=== PATIENT | female | born 1935 | race Caucasian/White ===

== ENCOUNTER 2018-02-10 14:17 | Inpatient (IN) | payer MEDICARE ==
[~2018-02-10] VITALS: Ht 170.2 cm; Wt 86.4 kg
--- NOTE | ~2018-02-10 | PN ---
PATIENT:PRABHU HAINES MEDICAL RECORD: [id number] LOCATION:[facility] ADMISSION DATE: 02/10/18 PROGRESS NOTE DATE OF SERVICE: 02/19/2018 SUBJECTIVE: The patient's case was discussed with staff. She has no new complaint. OBJECTIVE: The patient is in good behavioral control with limited insight about her condition. She tolerates her medicines well. ASSESSMENT: No change in diagnoses. PLAN: Supportive and educational interventions were made. Custodial prognosis is guarded. I anticipate the patient can be transitioned to rehabilitative services soon if this level of improvement is maintained. TRANSINT:[id number] Voice Confirmation ID: [id number] DOCUMENT ID: [id number] EFRAIN XIONG MD at 1433 CC: [id number] DICTATION DATE: 02/19/18 1434 FOUNDATION DIGGER: 02/19/18 1452 ADM IN [place] [id number] [place] [id number]
--- NOTE | ~2018-02-10 | PSY ---
PATIENT NAME:PRABHU HAINES MEDICAL RECORD: [id number] : 35 LOCATION:[facility] [place]8 ADMISSION DATE: 02/10/18 ACCOUNT: [id number] PSYCHIATRIC EVALUATION DATE OF EVALUATION: 02/11/18 IDENTIFYING DATA: The patient is 82 years old and she is admitted to the hospital on a voluntary basis. CHIEF COMPLAINT: "I fall down a lot." HISTORY OF PRESENT ILLNESS: The patient's family brought her to the Emergency Room at [facility] yesterday. They reported that she has been quite confused. The patient admits she has had some confusion, but in my opinion tends to be minimizing it significantly. She says that she has no particular concerns about this, but then goes on to report a lot of depressive symptoms related to her daughter's suicide and the of her sister. She states that she does not want to hurt herself. She also says that she is having trouble focusing properly and has not been particularly hungry. PAST MEDICAL HISTORY: Significant for diabetes, hypothyroidism, and hypertension. PAST PSYCHIATRIC HISTORY: Significant for depression which has been treated on an outpatient basis. FAMILY HISTORY: Significant for mood disorders as evidenced by her daughter, who killed herself. ALLERGIES: CEPHALOSPORINS, CIPRO, AND MORPHINE. CURRENT MEDICATIONS: Include Glucophage, Synthroid, Protonix, Halfprin, Lopressor, Effexor and an assortment of vitamins. SOCIAL HISTORY: The patient is . She had 4 children, but now only has 3. 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 MENTAL STATUS EXAMINATION: The patient is awake, alert and oriented to person, place and somewhat to time and situation. Her mood is flat. Her affect is constricted. Thought processes are circumstantial. Memory, concentration, and abstraction abilities are moderately impaired, and she denies any intent to harm herself or others as well as overt psychotic symptoms. ASSETS: Supportive family members. LIABILITIES: Limited insight. DIAGNOSTIC IMPRESSION: AXIS I: Major depression, moderate severity without psychotic features. Rule out dementia. AXIS II: None. AXIS III: Diabetes, hypertension, hypothyroidism. AXIS IV: Moderate stressors. AXIS V: Global assessment of functioning is 40. PLAN: At this time, the patient is admitted to the hospital for a comprehensive medical, psychological, and social evaluation. She will be treated with both mood stabilizing and memory enhancing medications. Her long-term prognosis is guarded. TRANSINT:[id number] Voice Confirmation ID: [id number] DOCUMENT ID: [id number] EFRAIN XIONG MD at 1407 CC: [id number] DICTATION DATE: 02/11/18 1137 INDUSTRIAL SOCIOLOGIST: 02/11/18 1429 ADM IN [place] [id number] [place] [id number]
--- NOTE | ~2018-02-10 | PN ---
PATIENT:PRABHU HAINES MEDICAL RECORD: [id number] LOCATION:[facility] Van[facility]112 ADMISSION DATE: 02/10/18 PROGRESS NOTE DATE OF SERVICE: 02/20/2018 SUBJECTIVE: The patient's case was discussed with staff. She has no new complaint. OBJECTIVE: The patient denies intent to harm herself or others. She tolerates her medicines well. Eye contact is fair. ASSESSMENT: No change in diagnoses. PLAN: Supportive and educational interventions were made. Long-term prognosis is guarded. TRANSINT:[id number] Voice Confirmation ID: [id number] DOCUMENT ID: [id number] EFRAIN XIONG MD at 1348 CC: [id number] DICTATION DATE: 02/20/18 1504 FORMING ACID DUMPER: 02/20/[address] [facility] [address] [place] [address]
--- NOTE | ~2018-02-10 | DS ---
PATIENT:PRABHU HAINES :35 MEDICAL RECORD: [id number] DISCHARGE SUMMARY ADMISSION DATE: 02/10/18 DISCHARGE DATE: 02/22/18 IDENTIFYING DATA: The patient is 82 years old and she was admitted to the hospital on a voluntary basis. The patient initially had the complaint that she was falling down frequently and indeed she did have some bruising. The patient's family actually brought her to the Emergency Room at [facility]. They reported that she had been confused. The patient did not feel she had any particular concerns about that, but endorsed a lot of depressive symptoms and related it to the of her daughter and the of her sister. She stated that she did not want to hurt herself, was having trouble focusing properly and had a significant appetite loss. HOSPITAL COURSE: The patient was admitted to the hospital and fully evaluated from both a medical, psychological, and social standpoint. She was treated with both mood stabilizing and memory enhancing medications. She was found to be depressed and was given antidepressant medication and did show improvement. It was clear from the initial evaluation that the patient was significantly and seriously impaired. Testing was ordered by our neuropsychologist, Dr. Nancy Suggs, who performed an evaluation and found her to be severely impaired cognitively with an overall score of 5/30 with anything below 28 being abnormal. The results of this were a little surprising to me and I suppose that was the relative preservation of her verbal skills that would have led me to guess that she would have probably scored in the 10 or 12 range, but she is severe. This does fit with what was observed clinically with the exception of the relative preservation of her verbal skills. The patient was successfully treated with medication and subsequently was transitioned out of the hospital. DISCHARGE DIAGNOSES: AXIS I: Major depression, senile dementia of the Alzheimer's type. AXIS II: None. AXIS III: Diabetes, hypertension and hypothyroidism. AXIS IV: Moderate stressors. AXIS V: Global assessment of functioning 45. PLAN: At the time of discharge, the patient was not representing an acute risk to herself or others. She had no psychotic symptoms and no thoughts of harming herself or others. She was severely impaired cognitively and it is my opinion that she lacks the capacity to make reasonable informed consent decisions about her person or a state. I do not believe she should be left unattended and that the least restrictive environment may well be at home, but she must have 94-zvnf-d-day supervision. It is irresponsible and inappropriate for her to have anything less and it would place her safety at risk because of her condition, which unfortunately is also going to worsen. Followup will be with her primary care physician. Again, there is no evidence of dangerousness acutely and I think she will respond reasonably well to a supportive structured environment. TRANSINT:[id number] Voice Confirmation ID: [id number] DOCUMENT ID: [id number] DISCHARGE SUMMARY REPORT [id number] PRABHU HAINES PETER MD at 1037 CC: [id number] DICTATION DATE: 03/13/18 1504 COMMUNICATION EQUIPMENT MECHANIC: 03/13/18 2004 DIS IN 02/22/18 [facility] [address] [place] [address]
--- NOTE | ~2018-02-10 | PN ---
PATIENT:PRABHU HAINES MEDICAL RECORD: [id number] LOCATION:[facility] [place]112 ADMISSION DATE: 02/10/18 PROGRESS NOTE DATE OF SERVICE: 02/13/2018 SUBJECTIVE: The patient's case was discussed with staff. She has no new complaint. OBJECTIVE: The patient is in good behavioral control with limited insight about her condition. She tolerates her medicines well. ASSESSMENT: No change in diagnoses. PLAN: Supportive and educational interventions were made. I am going to start the patient on Aricept for its memory enhancing properties. TRANSINT:[id number] Voice Confirmation ID: [id number] DOCUMENT ID: [id number] EFRAIN XIONG MD at 1236 CC: [id number] DICTATION DATE: 02/13/18 1318 ICT PROJECT MANAGER: 02/13/18 1353 ADM IN [facility] [address] [place] [address]
--- NOTE | ~2018-02-10 | PN ---
PATIENT:PRABHU HAINES MEDICAL RECORD: [id number] LOCATION:[place]112 ADMISSION DATE: 02/10/18 PROGRESS NOTE DATE OF SERVICE: 02/22/2018 SUBJECTIVE: The patient's case was discussed with staff. She has no new complaint. OBJECTIVE: The patient is in good behavioral control with limited insight about her condition. She does tolerate her medicines well. ASSESSMENT: No change in diagnoses. PLAN: The patient will be transitioned out of the hospital today. She is going to go to rehab at [facility]. Follow up will be with the primary care [facility] physician. TRANSINT:[id number] Voice Confirmation ID: [id number] DOCUMENT ID: [id number] EFRAIN XIONG MD at 1434 CC: [id number] DICTATION DATE: 02/22/18 1349 SALES TRAINING MANAGER: 02/22/18 1417 DIS IN 02/22/18 [place] [id number] [place] [address]
--- NOTE | ~2018-02-10 | PN ---
PATIENT:PRABHU HAINES MEDICAL RECORD: [id number] LOCATION:[place]112 ADMISSION DATE: 02/10/18 PROGRESS NOTE DATE OF SERVICE: 02/14/2018 SUBJECTIVE: The patient's case was discussed with staff. She has no new complaint. OBJECTIVE: The patient is in good behavioral control with limited insight about her condition. She generally tolerates her medicines well. ASSESSMENT: No change in diagnoses. PLAN: The patient's current medicines have been reviewed. She is tolerating her medicines well. I will maintain these medications and anticipate that she can be transitioned out of the hospital soon. TRANSINT:[id number] Voice Confirmation ID: [id number] DOCUMENT ID: [id number] EFRAIN XIONG MD at 1332 CC: [id number] DICTATION DATE: 02/14/18 1305 LAP POLISHER: 02/14/18 1357 ADM IN [place] [id number] [place] [address]
--- NOTE | ~2018-02-10 | PN ---
PATIENT:PRABHU HAINES MEDICAL RECORD: [id number] LOCATION:[facility] [place]112 ADMISSION DATE: 02/10/18 PROGRESS NOTE DATE OF SERVICE: 02/16/2018 SUBJECTIVE: The patient's case was discussed with staff. She has no new complaint. OBJECTIVE: The patient is in good behavioral control with limited insight about her condition. She tolerates her medicines well. She is severely impaired cognitively. She is tolerating therapies well and participating fairly well. ASSESSMENT: No change in diagnoses. PLAN: The patient will be transitioned back to [facility] for rehab probably early next week. I am concerned about her appetite suppression, but she is far from underweight, so I do not think it will be an issue in the short run. TRANSINT:[id number] Voice Confirmation ID: [id number] DOCUMENT ID: [id number] EFRAIN XIONG MD at 0908 CC: [id number] DICTATION DATE: 02/16/18 1555 LANDSCAPE TECHNICIAN: 02/16/18 1632 ADM IN [place] [id number] [place] [id number]
--- NOTE | ~2018-02-10 | PN ---
PATIENT:PRABHU HAINES MEDICAL RECORD: [id number] LOCATION:[place]112 ADMISSION DATE: 02/10/18 PROGRESS NOTE DATE OF SERVICE: 02/12/2018 SUBJECTIVE: The patient's case was discussed with staff. She has no new complaint. OBJECTIVE: The patient denies intent to harm herself or others. She tolerates her medicines well. Eye contact is fair. ASSESSMENT: No change in diagnoses. PLAN: The patient is extremely confused. I cannot help but believe that her underlying dementia symptoms are being worsened by the number of medicine she is taking. I am going to try to reduce some of these to see if that aids in her cognitive impairment. TRANSINT:[id number] Voice Confirmation ID: [id number] DOCUMENT ID: [id number] EFRAIN XIONG MD at 1236 CC: [id number] DICTATION DATE: 02/12/18 1441 GOLF BALL WINDER: 02/12/18 1601 ADM IN [place] [id number] [place] [address]
--- NOTE | ~2018-02-10 | PN ---
PATIENT:PRABHU HAINES MEDICAL RECORD: [id number] LOCATION:[place]112 ADMISSION DATE: 02/10/18 PROGRESS NOTE DATE OF SERVICE: 02/17/2018 SUBJECTIVE: The patient's case was discussed with staff. She has no new complaint. OBJECTIVE: The patient is in good behavioral control with limited insight about her condition. She does tolerate her medicines well. ASSESSMENT: No change in diagnoses. PLAN: Supportive and educational interventions were made. Long-term prognosis is guarded. I anticipate she can be transitioned out of the hospital soon if this level of improvement is maintained. TRANSINT:[id number] Voice Confirmation ID: [id number] DOCUMENT ID: [id number] EFRAIN XIONG MD at 1433 CC: [id number] DICTATION DATE: 02/17/18929 WIRE STOCKKEEPER: 02/17/18 09 ADM IN [place] [id number] [place] [id number]
--- NOTE | ~2018-02-10 | PN ---
PATIENT:PRABHU HAINES MEDICAL RECORD: [id number] LOCATION:[facility] [place]112 ADMISSION DATE: 02/10/18 PROGRESS NOTE DATE OF SERVICE: 02/15/2018 SUBJECTIVE: The patient's case was discussed with staff. She has no new complaint. OBJECTIVE: The patient is in good behavioral control with limited insight about her condition. She tolerates her medicines well. ASSESSMENT: No change in diagnoses. PLAN: The patient is significantly impaired cognitively, but is in good behavioral control. I anticipate she can be transitioned out of the hospital soon if this level of improvement is maintained. TRANSINT:[id number] Voice Confirmation ID: [id number] DOCUMENT ID: [id number] EFRAIN XIONG MD at 1521 CC: [id number] DICTATION DATE: 02/15/18 1406 ENVIRONMENTAL ENGINEER SCIENTIST: 02/15/18 1501 ADM IN [place] [id number] [place] [address]
--- NOTE | ~2018-02-10 | PN ---
PATIENT:PRABHU HAINES MEDICAL RECORD: [id number] LOCATION:[facility] [place]112 ADMISSION DATE: 02/10/18 PROGRESS NOTE DATE OF SERVICE: 02/21/2018 SUBJECTIVE: The patient's case was discussed with staff. She has no new complaint. OBJECTIVE: The patient denies intent to harm herself or others. She generally tolerates her medicines well. Eye contact is fair. ASSESSMENT: No change in diagnoses. PLAN: The patient continues to not eat very well, but efforts to improve this have had only minimal success. I am going to transition her out of the hospital tomorrow. Her long-term prognosis is guarded, and she will go to [facility] for rehab. TRANSINT:[id number] Voice Confirmation ID: [id number] DOCUMENT ID: [id number] EFRAIN XIONG MD at 1326 CC: [id number] DICTATION DATE: 02/21/18 1410 NUT ORCHARDIST: 02/21/18 1419 ADM IN [place] [id number] [place] [address]
[~2018-02-10 14:17] MED LIST: ASCORBIC ACID500 MG PO; ASPIRIN EC81 M1 PO; GLUCOPHAGE500 MG PO; LASIX20 MG PO; METOPROLOL TART50 MG PO; MULTI-DAY VITAM1 TAB PO; NEURONTIN 300300 MG PO; OXYCODONE HCL E20 MG PO; PRESERVISION AR1 CAP PO; SYNTHROID50 MCG PO; TRAVATAN Z2.5 ML EACH EYE
[2018-02-10 16:52] VITALS: BP 149/75; BMI 29.8
[2018-02-10] MEDS ORDERED: OMEPRAZOLE20 M1 PO (17:55)
[2018-02-10] MEDS ORDERED: BETA CAROT10000 UNIT PO (17:55)
[2018-02-10] MEDS ORDERED: ASCORBIC ACID500 MG PO (17:56)
[2018-02-10] MEDS ORDERED: K-DUR20 MEQ PO (17:58)
[2018-02-10 18:02] LABS: CHOL - HDL RATIO 4.5 ratio (2.3-4.1); LDL-HDL RATIO 2.5 ratio (1.5-3.5); THYROID STIMULATING HORMONE 5.98 uIU/mL (0.36-3.74)
[2018-02-10] MEDS ORDERED: VITAMIN D250000 UNIT PO (18:02)
[2018-02-10] MEDS ORDERED: EFFEXOR XR75 MG PO (18:03)
[2018-02-10] MEDS ORDERED: LUMIGAN 0.01%2.5 ML EACH EYE (18:05)
[2018-02-10] MEDS ORDERED: KENALOG 0.1 % 115 GM TOPICAL (18:06)
[2018-02-10 20:46] VITALS: BP 121/79
[2018-02-11 07:00] VITALS: BP 125/90
[2018-02-11] MEDS ORDERED: REMERON15 MG PO (12:36)
[2018-02-11 18:45] VITALS: BP 150/78
[2018-02-12] MEDS ORDERED: BUTALB-APAP-CA1 EACH PO (04:05)
[2018-02-12] MEDS ORDERED: CATAPRES0.1 MG PO (04:08)
[2018-02-12] MEDS ORDERED: DEPAKOTE125 MG PO (04:08)
[2018-02-12] MEDS ORDERED: COLACE100 MG PO (04:09)
[2018-02-12] MEDS ORDERED: NEURONTIN 300300 MG PO (04:10)
[2018-02-12] MEDS ORDERED: FUROSEMIDE20 MG PO (04:10)
[2018-02-12] MEDS ORDERED: XALATAN 0.0052.5 ML EACH EYE (04:14)
[2018-02-12] MEDS ORDERED: ROBAXIN-750750 MG PO (04:18)
[2018-02-12] MEDS ORDERED: PROTONIX40 MG PO (04:20)
[2018-02-12] MEDS ORDERED: OXYBUTYNIN CHLOR5 MG PO (04:20)
[2018-02-12] MEDS ORDERED: ULTRAM50 MG PO (04:21)
[2018-02-12] MEDS ORDERED: ZOCOR20 MG PO (04:21)
[2018-02-12 07:00] VITALS: BP 158/78
[2018-02-12 15:24] VITALS: BMI 29.7
[2018-02-12 20:31] VITALS: BP 139/74
[2018-02-13 07:36] LABS: RAPID PLASMA REAGIN Non Reactive (Non Reactive)
[2018-02-13 09:18] LABS: VITAMIN D 25 HYDROXY 84.1 ng/mL (30.0-100.0)
[2018-02-13 09:40] VITALS: BP 146/88
[2018-02-13 10:14] VITALS: Ht 170.2 cm; Wt 86.4 kg
[2018-02-13 22:01] VITALS: BP 148/78
[2018-02-14 09:05] VITALS: BP 135/90
[2018-02-14 21:21] VITALS: BP 162/78
[2018-02-15 08:06] VITALS: BP 145/80
[2018-02-15 19:19] VITALS: BP 138/68
[2018-02-16 09:11] VITALS: BP 131/110
[2018-02-16 19:11] VITALS: BP 150/70
[2018-02-17 07:50] VITALS: BP 134/72
[2018-02-17 19:50] VITALS: BP 113/85
[2018-02-18 07:00] VITALS: BP 133/71
[2018-02-18 20:16] VITALS: BP 147/77
[2018-02-18 21:58] VITALS: BP 144/77
[2018-02-19 07:23] VITALS: BP 156/70
[2018-02-19 19:43] VITALS: BP 110/66
[2018-02-20 09:33] VITALS: BP 140/77
[2018-02-20 20:42] VITALS: BP 133/71
[2018-02-21 11:57] VITALS: BP 165/98
[2018-02-21] MEDS ORDERED: ARICEPT5 MG PO (14:11)
[2018-02-21] MEDS ORDERED: EFFEXOR50 MG PO (14:12)
[2018-02-21] MEDS ORDERED: PERPHENAZINE2 MG PO (14:12)
[2018-02-21] MEDS ORDERED: KENALOG 0.1 % 115 GM TOPICAL (14:13)
[2018-02-21] MEDS ORDERED: K-DUR20 MEQ PO (14:13)
[2018-02-21] MEDS ORDERED: VITAMIN A10000 UNIT PO (14:14)
[2018-02-21 19:45] VITALS: BP 118/74
[2018-02-22 07:30] VITALS: BP 133/82
[2018-02-22 19:24] VITALS: BP 139/74
== END 2018-02-22 19:59 | DRG 885 ==
LOC: D.PSYCH 14:17
PROVIDERS: Psychiatry & Neurology Psychiatry
DX: F32.1 Major depressive disorder, single episode, moderate (principal); J18.9 Pneumonia, unspecified organism; N10 Acute pyelonephritis; E11.40 Type 2 diabetes mellitus with diabetic neuropathy, unspecified; E03.9 Hypothyroidism, unspecified; H40.9 Unspecified glaucoma; E78.5 Hyperlipidemia, unspecified; Z74.09 Other reduced mobility; E11.22 Type 2 diabetes mellitus with diabetic chronic kidney disease; I12.9 Hypertensive chronic kidney disease with stage 1 through stage 4 chronic kidney disease, or unspecified chronic kidney disease; N18.9 Chronic kidney disease, unspecified; M48.56XD Collapsed vertebra, not elsewhere classified, lumbar region, subsequent encounter for fracture with routine healing; E55.9 Vitamin D deficiency, unspecified; Z86.73 Personal history of transient ischemic attack (TIA), and cerebral infarction without residual deficits